=== PATIENT | female | born 1990 | race Caucasian/White ===

== ENCOUNTER 2016-08-10 09:23 | Day surgery (SDC) | payer OTHER ==
[~2016-08-10] VITALS: Ht 167.6 cm; Wt 59.0 kg
[~2016-08-10 09:23] MED LIST: CEFAZOLIN 1GM IVPB FOR OMNI 50 ML IV ONE; FENTANYL PF 100 MCG/2 ML VIAL. IV PRN; HYDROMORPHONE 2 MG/ML VIAL. IV PRN; IV RINGERS,LACTATED 1000ML 1,000 ML IV SCH; LIDOCAINE 1% 1 ML SYRINGE. ID PRN; MORPHINE SULFATE 2 MG/ML DISP.SYRIN. IV PRN; ONDANSETRON PF 4 MG/2 ML VIAL. IV PRN; PROCHLORPERAZINE 10 MG/2 ML VIAL. IV PRN
[2016-08-10] MEDS ORDERED: LIDOCAINE 2% 100 MG/5 ML DISP.SYRIN. ONE (09:39)
[2016-08-10] MEDS ORDERED: FENTANYL PF 250 MCG/5 ML VIAL. ONE (09:39)
[2016-08-10] MEDS ORDERED: ONDANSETRON PF 4 MG/2 ML VIAL. ONE (09:39)
[2016-08-10] MEDS ORDERED: ROCURONIUM 50 MG/5 ML VIAL. ONE (09:39)
[2016-08-10] MEDS ORDERED: PROPOFOL 20 ML IV ONE (09:39)
[2016-08-10] MEDS ORDERED: MIDAZOLAM HCL 2 MG/2 ML VIAL. ONE (09:39)
[2016-08-10] MEDS ORDERED: DEXAMETHASONE SOD PHOS 20 MG/5 ML VIAL. ONE (09:39)
[2016-08-10] MEDS ORDERED: ACET325T9 PO (10:10)
[2016-08-10 10:42] LABS: NEG OBC UR NEG; POS OBC UR POS
[2016-08-10] MEDS ORDERED: BUPIVACAINE-EPI 0.25%-1:200000 50 ML VIAL. ONE (10:59)
[2016-08-10] MEDS ORDERED: SURGICEL HEMOSTAT 4X8 EACH. ONE (10:59)
[2016-08-10] MEDS ORDERED: ACETAMINOPHEN INTRAVENOUS 100 ML IV ONE (10:59)
[2016-08-10] MEDS ORDERED: GLYCOPYRROLATE 1 MG/5 ML VIAL. ONE (11:34)
[2016-08-10] MEDS ORDERED: NEOSTIGMINE METHYLSULFATE 5 MG/5 ML SYRINGE. ONE (11:35)
[2016-08-10] MEDS ORDERED: SEVOFLURANE 31 TO 60 MINUTES. IH ONE (11:39)
[2016-08-10] MEDS ORDERED: KETOROLAC 30 MG/ML SYRINGE FOR OR. INJ ONE (11:39)
--- NOTE | 2016-08-10 11:57 | PDOC ---
BRIEF OPERATIVE NOTE Pre-Op Diagnosis CPP Post-Op Diagnosis Same + Endometriosis Procedure Performed [facility] Resection Endometriosis Surgeon Dr. Ramsay Anesthesia Type: General Blood Loss 5 ml Specimens Obtained Left culde sac peritoneal biopsy Findings Endometriosis Left posterior culde sac; nml fallopian tubes marino., nml ovaries marino. Complications none Additional Remarks pt. ARIANA Spring Jr, MD Aug 10, 2016 11:57
--- NOTE | 2016-08-10 11:57 | DISCH ---
DISCHARGE INSTRUCTIONS Condition on Discharge Condition on Discharge: Stable Activity After Discharge Activity Instructions for Disc: Resume previous activity Lifting Instructions after Dis: No heavy lifting Driving Instructions after Dis: Do not drive today Diet after Discharge Diet after Discharge: Regular Contacting the [facility]Almas after DC Call your doctor for: Concerns you may have Follow-Up Follow up with: Dr. Ramsay in 1 week. ARIANA RAMSAY Jr, MD Aug 10, 2016 11:57
[2016-08-10] MEDS ORDERED: OXYC-323 PO (12:46)
[2016-08-10] MEDS ORDERED: OXYCODONE/APAP 5/325 TABLET. PO PRN (13:00)
[2016-08-10 13:30] VITALS: BP 103/54
--- NOTE | 2016-08-10 17:45 | OP ---
DATE OF SURGERY: PREOPERATIVE DIAGNOSES: Chronic pelvic pain. POSTOPERATIVE DIAGNOSES: Chronic pelvic pain plus endometriosis. PROCEDURE: Laparoscopic resection of endometriosis. SURGEON: Norris Ramsay MD. ANESTHESIA: GETA. ESTIMATED BLOOD LOSS: 5 mL. COMPLICATIONS: None. FINDINGS: Endometriosis in the left posterior cul-de-sac, peritoneal wall, normal fallopian tubes bilaterally, normal ovaries bilaterally with resolving left ovarian cyst. COMPLICATIONS: None. SUMMARY: A 25-year-old with chronic pelvic pain. There was a left ovarian cyst on sonogram of about 1.5 cm size. She was counseled on possibility of endometriosis. Risks, benefits and expectations of laparoscopic resection of endometriosis. DESCRIPTION OF PROCEDURE: The patient was taken to the surgery suite and placed in dorsal lithotomy position. She was prepped with Betadine solution for vaginal prep and ChloraPrep for abdominal prep. After adequate anesthesia, a bivalve speculum was placed vaginally. Anterior lip of the cervix grasped with a single tooth tenaculum. [place] uterine manipulator was then placed. The bivalve speculum was removed. Attention was now placed on the abdomen. Small transverse skin incision made just below the umbilicus with a scalpel. Veress needle was then placed through the infraumbilical incision site. The abdomen was allowed to insufflate up to 1-1/2 liters of CO2 gas. The Veress needle was then removed. A 5 mm trocar was then placed. Scope was positioned. The uterus appeared normal size. Fallopian tubes and ovaries appeared normal with exception of a resolving left ovarian cyst. There was an area of endometriosis in the left posterior cul-de-sac, peritoneal wall, which was excised. Two additional incisions were made in the left lower quadrant with a scalpel in which 5 mm trocars were placed with aid of [place] graspers and the EndoShears. The endometriosis was excised. The area was hemostatic. Suction irrigation was utilized throughout the pelvic cul-de-sac. Small amount of normal saline was left in the posterior cul-de-sac. The trocars were then removed under direct visualization. The abdomen was allowed to deflate as much as possible along with mechanical manipulation. The three skin incisions were reapproximated using 4-0 Vicryl suture in subcuticular manner. Marcaine 0.25% with epinephrine was injected at each incision site. The single tooth tenaculum and [place] uterine manipulator were both removed. The patient tolerated the procedure well and was taken to recovery room in stable condition. Sponge and needle count correct x 3. NORRIS RAMSAY MD DR: RICARDA/jodi JOB#: [id number] / [id number]
--- NOTE | 2016-08-11 13:58 | PATHOLOGY ---
PATHOLOGY REPORT * * * * * * * * FINAL DIAGNOSIS: Fibroadipose tissue, left posterior cul-de-sac peritoneal biopsy: - Endometriosis. COMMENT: There is no evidence of malignancy. (CHALINOM:; d/t: 08/11/16) REPORT ELECTRONICALLY SIGNED BY: Flaco Todd M.D. DATE/TIME: 08/11/2016 13:57 * * * * * * * * GROSS PATHOLOGY: The specimen is received in formalin labeled "Tori Bedolla, left posterior cul-de-sac peritoneal biopsy". Received is a segment of pink-valdez to yellow-valdez soft tissue measuring 1.0 x 0.7 x 0.3 cm in greatest dimensions. The specimen is submitted entirely in cassette A1. (CAA; 08/10/2016) INITIAL CPT CODE(S): A; 91352 Professional services performed by [facility] [place] [address] Technical services performed by [facility] at [address] [place] [address], [facility] [address] [address]. SPECIMEN(S) RECEIVED: A.Left posterior cul de sac peritoneal biopsy CLINICAL HISTORY: Chronic pelvic pain, pelvic and perineal pain PATIENT: TORI BEDOLLA /AGE: 511/29/1990 (Age: 25) PATIENT #: [id number] ALT CASE #: SPECIMEN COLLECTION DATE: 08/10/2016 SPECIMEN RECEIVED DATE: 08/10/2016 [facility] - [address] [place] [address] - PHONE: [phone] * * * END OF REPORT * * *
== END 2016-08-10 13:52 | disposition home or self-care (01) ==
LOC: SURG 09:23
PROVIDERS: ATTEND Obstetrics & Gynecology
DX: N80.3 Endometriosis of pelvic peritoneum (principal); N83.202 Unspecified ovarian cyst, left side; J45.909 Unspecified asthma, uncomplicated; F41.9 Anxiety disorder, unspecified; F32.9 Major depressive disorder, single episode, unspecified; F17.200 Nicotine dependence, unspecified, uncomplicated; F10.99 Alcohol use, unspecified with unspecified alcohol-induced disorder
CPT/HCPCS: 58662; 81025; J0131; J0690; J0780; J1100; J1885; J2250; J2405; J2704; J2710; J3010; J3490; 88305; A4215; J7030; J7120